=== PATIENT | male | born 1985 | race African-American/Black ===

== ENCOUNTER → 2022-03-15 | Outpatient (CLI) | payer OTHER ==
--- NOTE | 2022-03-15 16:41 | Diagnostic Imaging Report ---
CLINICAL HISTORY: Left hip pain. No known trauma. COMPARISON: None. TECHNIQUE: 5 views of the pelvis and bilateral hips. FINDINGS: There is no acute fracture or dislocation of the pelvis and bilateral hips. A cystic lesion is seen in the head of the left femur resulting in loss of normal joint space in the left hip joint. The right hip joint demonstrates normal alignment without significant degenerative changes. The bilateral SI joints are unremarkable. The pubic symphysis is intact. The surrounding soft tissues are unremarkable. IMPRESSION: 1. Cystic lesion in the head of the left femur which appears to extend to the left hip joint causing loss of joint space. No pathologic fractures identified. Recommend further evaluation with CT and/or MRI of the left hip. 2. No acute fracture or dislocation in the pelvis. Normal appearance of the right hip. Dictated by: Dictated on workstation # [id number]
== END ==
LOC: RAD 15:55
PROVIDERS: ATTEND Chiropractor
DX: M85.48 Solitary bone cyst, other site (principal)
CPT/HCPCS: 73523

== ENCOUNTER → 2022-11-09 | Outpatient (CLI) | payer OTHER ==
--- NOTE | 2022-11-09 11:09 | Diagnostic Imaging Report ---
EXAMINATION: Magnetic resonance imaging of the pelvis and left hip without contrast DATE: November 09, 2022. COMPARISON: Radiographs of the pelvis and hips March 15, 2022. INDICATION: 37-year-old male, left hip pain. TECHNIQUE: Magnetic Resonance Imaging sequences were performed of the pelvis without contrast. TENDONS AND MUSCLES: The gluteus ayanna muscles and their origins and insertions are intact bilaterally. The tendons and muscles of the greater trochanter - gluteus minimus, piriformis and gluteus medius - are intact bilaterally. Both common hamstring attachments on the ischial tuberosities are intact and the extensor muscles of the thigh are intact. The visualized portions of the flexors and adductor muscles of the thigh and their attachments on the pelvis and hips are intact. Both iliopsoas and iliacus muscles are intact. The bilateral iliopsoas tendons are intact. HIPS AND SACROILIAC JOINTS: There is abnormal contour of the articulating surface of the left femoral head consistent with subchondral collapse. There is underlying edema-like signal and areas of cystic change. This most likely relates to sequela of avascular necrosis. There is medu-ig-jsly articulation of the left hip joint. There is degenerative related edema in the left acetabulum. There is a moderate to large left hip joint effusion. There is no identified fluid-filled right hip labral tear or paralabral cyst. There is no finding of avascular necrosis of the right femoral head. There is no right hip joint effusion. The sacroiliac joints are unremarkable. LUMBAR SPINE: The visible portions of the lumbar spine are unremarkable on limited assessment. BONE: There is subchondral collapse and irregularity of the articulating surface of the left femoral head as described above. There is no evidence of avascular necrosis of the right femoral head. There is no identified acute fracture. The additional bone marrow signal is unremarkable. BURSAE AND SOFT TISSUES: The bursae and soft tissues surrounding the pelvis and hips are within normal limits. IMPRESSION: 1. Significantly altered contour of the articulating surface of the left femoral head compatible with subchondral collapse most likely relating to sequela of avascular necrosis with end-stage arthritis of the left hip and moderate to large left hip joint effusion. 2. No evidence of avascular necrosis of the right femoral head. 3. Intact muscles and tendons. Dictated by: Dictated on workstation # [id number]
== END ==
LOC: RAD 07:32
PROVIDERS: ATTEND Internal Medicine
DX: M16.12 Unilateral primary osteoarthritis, left hip (principal)
CPT/HCPCS: 73721

== ENCOUNTER 2023-03-15 14:44 | Observation (INO) | payer OTHER ==
[~2023-03-15] VITALS: Ht 182.9 cm; Wt 99.6 kg
[2023-03-15] MEDS ORDERED: ONDANSETRON 4 MG (ZOFRAN) ORAL DISSOLVE TAB PO PRN (15:45)
[2023-03-15] MEDS ORDERED: CALCIUM CARBONATE 500 MG (TUMS) TAB.CHEW PO PRN (15:45)
[2023-03-15] MEDS ORDERED: diphenhydrAMINE 50 MG/ML INJ (BENADRYL) IVP PRN (15:45)
[2023-03-15] MEDS ORDERED: MELATONIN 3 MG TABLET PO PRN (15:45)
[2023-03-15] MEDS ORDERED: LACTULOSE SYRUP 10GM/15ML (ENULOSE) 30ML UDC PO PRN (15:45)
[2023-03-15] MEDS ORDERED: ANTACID SUSP 30 ML UDC (MYLANTA) PO PRN (15:45)
[2023-03-15] MEDS ORDERED: diphenhydrAMINE 25 MG TAB (BENADRYL) PO PRN (15:45)
[2023-03-15] MEDS ORDERED: ACETAMINOPHEN 325 MG TABLET PO PRN (15:45)
[2023-03-15] MEDS ORDERED: ONDANSETRON 4 MG/2 ML (SDV) Z0FRAN IV PRN (15:45)
[2023-03-15] MEDS ORDERED: BISACODYL 10 MG SUPP (DULCOLAX) PR PRN (15:45)
[2023-03-15] MEDS ORDERED: MILK OF MAGNESIA 400 MG/5 ML 30 ML UDC PO PRN (15:45)
[2023-03-15] MEDS ORDERED: polyethylene glycoL POWDER 17 GM (MIRALAX) PACK PO PRN (15:45)
[2023-03-15] MEDS ORDERED: PANTOPRAZOLE 40 MG (PROTONIX) TAB PO NR (16:15)
[2023-03-15] MEDS: LACTATED RINGERS 1,000 ML IV SCH (16:19)
[2023-03-15 16:26] VITALS: BP 134/86
[2023-03-15] MEDS ORDERED: NS IV 500 ML 500 ML IV PRN (17:30)
[2023-03-15] MEDS ORDERED: LACTATED RINGERS 1,000 ML IV SCH (17:30)
[2023-03-15] MEDS: ALLOPURINOL 100 MG (ZYLOPRIM) TAB PO SCH (17:54)
[2023-03-15 17:56] LABS: HEMATOCRIT 34 % (40-54); HEMOGLOBIN 11.3 g/dL (13.3-17.7); MEAN CORPUSCULAR HEMOGLOBIN 31 pg (25-34); MEAN CORPUSCULAR HGB CONC 33 g/dL (32-36); MEAN CORPUSCULAR VOLUME 95 fL (80-99); PLATELET COUNT 473 10^3/uL (130-400); WHITE BLOOD COUNT 13.1 10^3/uL (4.3-11.0)
[2023-03-15] MEDS: NAPROXEN 250 MG (NAPROSYN) TABLET PO SCH (17:58)
[2023-03-15 18:07] LABS: POTASSIUM 3.8 MMOL/L (3.6-5.0)
[2023-03-15 18:12] LABS: CREATININE SERUM 1.04 MG/DL (0.60-1.30)
--- NOTE | 2023-03-15 19:08 | History & Physical-Hospitalist ---
History of Present Illness HPI/Chief Complaint Jaxon Camacho is a 37 year old male with PMH gout, avascular necrosis of the hip, who presented with joint pain. He was directly admitted from Dr. Aragon's office. He has had many gout flares in the past. He had taken steroids long-term due to recurrent polyarticular gout. He subsequently developed avascular necrosis of his hip. He was scheduled to have surgery a few weeks ago, but prior to the surgery he developed a gout flare. He was given a one time dose of colchicine and a short course of indomethacin. He was also started on allopurinol. He improved but then had another flare. He was given another short course, 4 days, of indomethacin. His allopurinol was increased. He again worsened and now has polyarticular joint complaints. He has pain in both ankles. He also has pain and swelling in both knees. He also reports bilateral wrist and elbow pain. He does not have any redness. He denies ever having had an arthrocentesis to confirm his gout. His uric acid was 6.8 at his most recent lab check. Source: patient, RN/MD Exam Limitations: no limitations Date Seen 03/15/23 Time Seen by a Provider: 17:15 Attending Physician Junior Aragon MD PCP Admitting Physician: Janneth Aguirre MD Attending Physician: Janneth Aguirre MD Referring Physician Date of Admission March 15, 2023 at 15:40 Home Medications & Allergies Home Medications Reviewed patient Home Medication Reconciliation performed by pharmacy medication reconciliations floor care technician and/or nursing. Patients Allergies have been reviewed. Allergies Allergies Coded Allergies No Known Drug Allergies (Unverified03/15/23) Past Kovelhw-Fzhdcg-Ronsbl Hx Patient Social History Tobacco Use?: Yes Smokeless Tobacco Frequency: Current Everyday User Use of E-Cig and/or Vaping dev: No Substance use?: No Alcohol Use?: No Pt feels they are or have been: No Immunizations Up To Date Tetanus Booster (TDap): More Than 5 Years Current Status Advance Directives: No Communicates: Verbally Primary Language: Occitan Preferred Spoken Language: Occitan Is interpretation needed?: No Past Medical History Gout Family Medical History Other Conditions/Hx (gout) Review of Systems Constitutional: no symptoms reported Respiratory: no symptoms reported Cardiovascular: no symptoms reported Gastrointestinal: no symptoms reported Physical Exam Physical Exam Vital Signs Vital Signs - First Documented 03/15/23 16:26 Temp 37.7 Pulse 107 Resp 20 B/P (MAP) 134/86 (102) Pulse Ox 98 O2 Delivery Room Air Capillary Refill : Height, Weight, BMI Height: '" Weight: lbs. oz. kg; 29.77 BMI Method: General Appearance: No Apparent Distress, WD/WN HEENT: PERRL/EOMI, Pharynx Normal Neck: Normal Inspection, Supple Respiratory: Lungs Clear, Normal Breath Sounds, No Respiratory Distress Cardiovascular: Regular Rate, Rhythm, No Murmur Gastrointestinal: Normal Bowel Sounds, Non Tender, Soft Extremity: Swelling, Other (bilateral ankle tenderness with passive range of motion, bilateral knee tenderness with passive range of motion with left knee swelling > right, bilateral wrist tenderness, left elbow swollen but nontender, no erythema) Neurologic/Psychiatric: Alert, No Motor/Sensory Deficits Skin: Warm/Dry; No Erythema Results Results/Procedures Labs Laboratory Tests 03/15/23 17:45 Patient resulted labs reviewed. Assessment/Plan Admission Diagnosis Acute polyarticular gout flare Admission Status: Observation Assessment and Plan Acute polyarticular gout flare Olecranon bursitis of left elbow Steroid-induced avascular necrosis of hip Tobacco abuse Consult Ortho for possible arthrocentesis Begin Naproxen Continue Allopurinol Pain regimen PPI for GI prophylaxis while on NSAIDs Nicotine patch Diagnosis/Problems Diagnosis/Problems (1) Polyarticular acute idiopathic gout Status: Acute (2) Olecranon bursitis of left elbow Status: Acute (3) Avascular necrosis of hip Status: Chronic Qualifiers: Laterality: unspecified laterality Qualified Codes: M87.059 - Idiopathic aseptic necrosis of unspecified femur (4) 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
[2023-03-15] MEDS: NICOTINE 14 MG (NICODERM) PATCH TD SCH (19:13)
[2023-03-15 19:54] VITALS: BP 128/62
[2023-03-15] MEDS: SENNOSIDES 8.6 MG (SENOKOT) TAB PO SCH (20:04)
[2023-03-15] MEDS: DOCUSATE SODIUM 100 MG (COLACE) CAP PO SCH (20:04)
[2023-03-15 23:35] VITALS: BP 126/70
[2023-03-16] MEDS: LACTATED RINGERS 1,000 ML IV SCH ×3 (02:27→13:35)
[2023-03-16 03:54] VITALS: BP 131/72
[2023-03-16 05:25] LABS: BASOPHILS # (AUTO) 0.1 10^3/uL (0.0-0.1); BASOPHILS % (AUTO) 1 % (0-10); EOSINOPHILS # (AUTO) 0.3 10^3/uL (0.0-0.3); EOSINOPHILS % (AUTO) 2 % (0-10); HEMATOCRIT 31 % (40-54); HEMOGLOBIN 10.2 g/dL (13.3-17.7); LYMPHOCYTES # (AUTO) 1.7 10^3/uL (1.0-4.0); LYMPHOCYTES % (AUTO) 13 % (12-44); MEAN CORPUSCULAR HEMOGLOBIN 31 pg (25-34); MEAN CORPUSCULAR HGB CONC 33 g/dL (32-36); MEAN CORPUSCULAR VOLUME 95 fL (80-99); MEAN PLATELET VOLUME 9.8 fL (9.0-12.2); MONOCYTES # (AUTO) 1.5 10^3/uL (0.0-1.0); MONOCYTES % (AUTO) 11 % (0-12); NEUTROPHILS # (AUTO) 9.3 10^3/uL (1.8-7.8); NEUTROPHILS % (AUTO) 72 % (42-75); PLATELET COUNT 413 10^3/uL (130-400); WHITE BLOOD COUNT 12.9 10^3/uL (4.3-11.0)
[2023-03-16 05:36] LABS: CALCIUM 10.1 MG/DL (8.5-10.1)
[2023-03-16] MEDS: POTASSIUM CL 10MEQ/50ML IVPB 50 ML IV SCH (05:36)
[2023-03-16] MEDS: KCL 20 MEQ TAB (K-DUR) PO SCH (05:37)
[2023-03-16 05:40] LABS: CREATININE SERUM 0.87 MG/DL (0.60-1.30)
[2023-03-16] MEDS: MAGNESIUM 1 GM/100 ML IVPB 100 ML IV SCH (05:47)
[2023-03-16 07:32] VITALS: BP 124/67
--- NOTE | 2023-03-16 08:28 | Progress Note - Hospitalist ---
[facility] 03/16/23 0827: Subjective HPI/CC On Admission Jaxon Camacho is a 37 year old male with PMH gout, avascular necrosis of the hip, who presented with joint pain. He was directly admitted from Dr. Aragon's office. He has had many gout flares in the past. He had taken steroids long-term due to recurrent polyarticular gout. He subsequently developed avascular necrosis of his hip. He was scheduled to have surgery a few weeks ago, but prior to the surgery he developed a gout flare. He was given a one time dose of colchicine and a short course of indomethacin. He was also started on allopurinol. He improved but then had another flare. He was given another short course, 4 days, of indomethacin. His allopurinol was increased. He again worse yoan and now has polyarticular joint complaints. He has pain in both ankles. He also has pain and swelling in both knees. He also reports bilateral wrist and elbow pain. He does not have any redness. He denies ever having had an arthrocentesis to confirm his gout. His uric acid was 6.8 at his most recent lab check. Subjective/Events-last exam Patient feels his pain is about the same as yesterday. He also reports pain in b/l MTP joints. He took one dose of oxycodone last night due to pain after getting up and walking to the bathroom. Review of Systems General: No Chills, No Night Sweats Gastrointestinal: No: Nausea, Vomiting Objective Exam Vital Signs Vital Signs Date Time Temp Pulse Resp B/P (MAP) Pulse Ox O2 Delivery O2 Flow Rate FiO2 03/16/23 11:29 36.2 85 18 122/65 (84) 95 Room Air Capillary Refill : General Appearance: No Apparent Distress, WD/WN Respiratory: Lungs Clear, Normal Breath Sounds, No Accessory Muscle Use, No Respiratory Distress Cardiovascular: Regular Rate, Rhythm, Normal Peripheral Pulses Gastrointestinal: Normal Bowel Sounds, Non Tender, Soft Extremity: Swelling, Other (bilateral ankle tenderness with passive range of motion, b/l MTP tenderness with passive ROM, bilateral knee tenderness with left knee swelling > right, bilateral wrist tenderness, left elbow without pain on range of motion, no erythema; right elbow erythematous and swollen as well as TTP) Neurologic/Psychiatric: Alert, No Motor/Sensory Deficits Skin: Normal Color, Warm/Dry Results/Procedures Lab Laboratory Tests 03/15/23 17:45 03/16/23 05:18 Patient resulted labs reviewed. Assessment/Plan Assessment and Plan Assess & Plan/Chief Complaint Acute polyarticular gout flare Olecranon bursitis of left elbow Steroid-induced avascular necrosis of hip Tobacco abuse Consult Ortho for arthrocentesis Continue Naproxen Continue Allopurinol Start colchicine Pain regimen PPI for GI prophylaxis while on NSAIDs Nicotine patch Likely d/c tomorrow if symptoms improving JANNETH AGUIRRE MD 03/16/23 1503: Subjective HPI/CC On Admission Date Seen by Provider: March 16, 2023 Time Seen by Provider: 11:20 Assessment/Plan Assessment and Plan Assess & Plan/Chief Complaint Arthrocentesis confirmed gout. Given colchicine. Continue naproxen and allopurinol. 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 I reviewed and verified all information documented by the medical student and made modifications to such information, when appropriate. I personally performed the physical exam and medical decision making. IVAN RYAN March 16, 2023 08:27 JANNETH AGUIRRE MD March 16, 2023 15:03
[2023-03-16] MEDS: NICOTINE 14 MG (NICODERM) PATCH TD SCH (09:25)
[2023-03-16] MEDS: NAPROXEN 250 MG (NAPROSYN) TABLET PO SCH ×2 (09:26→18:12)
[2023-03-16] MEDS: ALLOPURINOL 100 MG (ZYLOPRIM) TAB PO SCH ×2 (09:26→18:12)
[2023-03-16] MEDS: DOCUSATE SODIUM 100 MG (COLACE) CAP PO SCH ×2 (09:26→19:43)
[2023-03-16] MEDS: PANTOPRAZOLE 40 MG (PROTONIX) TAB PO SCH (09:27)
[2023-03-16] MEDS: SENNOSIDES 8.6 MG (SENOKOT) TAB PO SCH ×2 (09:27→19:43)
[2023-03-16] MEDS ORDERED: NAPR220T66 PO (10:25)
[2023-03-16] MEDS ORDERED: VITA-246 PO (10:25)
[2023-03-16] MEDS ORDERED: TURM500C4 PO (10:25)
[2023-03-16] MEDS ORDERED: ALLO100T PO (10:25)
[2023-03-16 11:29] VITALS: BP 122/65
--- NOTE | 2023-03-16 12:10 | Consultation - Ortho ---
Consult - Ortho Subjective Date of Exam 03/16/23 Chief Complaint Multiple joint pain HPI/Events since last exam recent gout treatments, had flare up, asked to obtain synovial fluid for lab analysis Medical, Surgical History see admit Social History see admit Family History see admit Review of Systems - Allergies: Coded Allergies: No Known Drug Allergies (Unverified , 03/15/23) Home Meds Reported Medications Naproxen Sodium (Aleve) 220 Mg Tablet, 220-440 MG PO Q12H PRN for PAIN-MILD (1- 4), TAB 03/16/23 Turmeric/Turmeric Root Extract (Turmeric 500 mg Capsule) 450 Mg-50 Mg Capsule, 1 EACH PO DAILY, CAP 03/16/23 Vitamin D3/Vitamin K2 (Mk4) (K2 Plus D3 Tablet) 1,000 Unit-100 Mcg Tablet, 1 EACH PO DAILY, TAB 03/16/23 Allopurinol (Allopurinol) 100 Mg Tablet, 100 MG PO BID, TAB 03/16/23 Objective Exam Right knee prepped with alcohol, 18 gauge needle inserted into suprapatellar pouch, 12 cc of cloudy synovial fluid removed, site dressed with band-aid Vital Signs Vital Signs Date Time Temp Pulse Resp B/P (MAP) Pulse Ox O2 Delivery O2 Flow Rate FiO2 03/16/23 11:29 36.2 85 18 122/65 (84) 95 Room Air 03/16/23 07:32 36.1 89 18 124/67 (86) 96 Room Air 03/16/23 03:54 37.0 99 18 131/72 (91) 96 Room Air 03/15/23 23:35 36.4 97 18 126/70 (88) 95 Room Air 03/15/23 20:05 Room Air 03/15/23 19:54 36.9 100 18 128/62 (84) 95 Room Air 03/15/23 17:49 Room Air 03/15/23 16:26 37.7 107 20 134/86 (102) 98 Room Air I & O 03/16/23 07:00 Intake Total 2300 ml Output Total 925 ml Balance 1375 ml Lab Results Laboratory Tests 03/15/23 17:45: White Blood Count 13.1H, Red Blood Count 3.61L, Hemoglobin 11.3L, Hematocrit 34L , Mean Corpuscular Volume 95, Mean Corpuscular Hemoglobin 31, Mean Corpuscular Hemoglobin Concent 33, Red Cell Distribution Width 14.1, Platelet Count 473H, Mean Platelet Volume 10.0, Sodium Level 137, Potassium Level 3.8, Chloride Level 99, Carbon Dioxide Level 23, Anion Gap 15H, Blood Urea Nitrogen 10, Creatinine 1.04, Estimat Glomerular Filtration Rate 94, BUN/Creatinine Ratio 10, Glucose Level 93, Calcium Level 11.0H 03/16/23 05:18: White Blood Count 12.9H, Red Blood Count 3.25L, Hemoglobin 10.2L, Hematocrit 31L , Mean Corpuscular Volume 95, Mean Corpuscular Hemoglobin 31, Mean Corpuscular Hemoglobin Concent 33, Red Cell Distribution Width 14.2, Platelet Count 413H, Mean Platelet Volume 9.8, Sodium Level 137, Potassium Level 4.0, Chloride Level 102, Carbon Dioxide Level 23, Anion Gap 12, Blood Urea Nitrogen 9, Creatinine 0.87, Estimat Glomerular Filtration Rate 113, BUN/Creatinine Ratio 10, Glucose Level 95, Calcium Level 10.1, Immature Granulocyte % (Auto) 1, Neutrophils (%) (Auto) 72, Lymphocytes (%) (Auto) 13, Monocytes (%) (Auto) 11, Eosinophils (%) (Auto) 2, Basophils (%) (Auto) 1, Neutrophils # (Auto) 9.3H, Lymphocytes # (Auto) 1.7, Monocytes # (Auto) 1.5H, Eosinophils # (Auto) 0.3, Basophils # (Auto) 0.1, Immature Granulocyte # (Auto) 0.1, Magnesium Level 2.0 Assessment and Plan Assessment Right knee effusion, possible gout Problem List Right knee effusion, possible gout Plan Send fluid for crystal analysis Final Diagonsis Right knee effusion, possible gout Level of the visit: Level 3 KARMA FRANZ MD March 16, 2023 12:10
[2023-03-16] MEDS ORDERED: COLCHICINE 0.6 MG (COLCRYS) TABLET PO NR ×2 (13:00→14:30)
[2023-03-16 15:43] VITALS: BP 132/79
[2023-03-16 20:10] VITALS: BP 130/80
[2023-03-16 23:41] VITALS: BP 129/77
[2023-03-17 03:43] VITALS: BP 126/81
[2023-03-17 05:38] LABS: BASOPHILS # (AUTO) 0.1 10^3/uL (0.0-0.1); BASOPHILS % (AUTO) 1 % (0-10); EOSINOPHILS # (AUTO) 0.4 10^3/uL (0.0-0.3); EOSINOPHILS % (AUTO) 4 % (0-10); HEMATOCRIT 33 % (40-54); HEMOGLOBIN 10.7 g/dL (13.3-17.7); LYMPHOCYTES # (AUTO) 1.9 10^3/uL (1.0-4.0); LYMPHOCYTES % (AUTO) 19 % (12-44); MEAN CORPUSCULAR HEMOGLOBIN 31 pg (25-34); MEAN CORPUSCULAR HGB CONC 32 g/dL (32-36); MEAN CORPUSCULAR VOLUME 95 fL (80-99); MEAN PLATELET VOLUME 10.2 fL (9.0-12.2); MONOCYTES # (AUTO) 1.1 10^3/uL (0.0-1.0); MONOCYTES % (AUTO) 11 % (0-12); NEUTROPHILS # (AUTO) 6.5 10^3/uL (1.8-7.8); NEUTROPHILS % (AUTO) 65 % (42-75); PLATELET COUNT 428 10^3/uL (130-400); WHITE BLOOD COUNT 9.9 10^3/uL (4.3-11.0)
[2023-03-17 05:54] LABS: CALCIUM 10.5 MG/DL (8.5-10.1)
[2023-03-17] MEDS: KCL 20 MEQ TAB (K-DUR) PO SCH (05:56)
[2023-03-17] MEDS: POTASSIUM CL 10MEQ/50ML IVPB 50 ML IV SCH (05:56)
[2023-03-17 05:59] LABS: CREATININE SERUM 0.84 MG/DL (0.60-1.30)
[2023-03-17 06:01] LABS: MAGNESIUM 2.1 MG/DL (1.6-2.4)
[2023-03-17] MEDS: MAGNESIUM 1 GM/100 ML IVPB 100 ML IV SCH (06:02)
[2023-03-17 07:15] VITALS: BP 131/84
[2023-03-17] MEDS ORDERED: ALLOPURINOL 100 MG (ZYLOPRIM) TAB PO SCH (08:00)
[2023-03-17] MEDS ORDERED: NICOTINE PATCH REMOVAL TP SCH (08:59)
[2023-03-17] MEDS: SENNOSIDES 8.6 MG (SENOKOT) TAB PO SCH (09:01)
[2023-03-17] MEDS: DOCUSATE SODIUM 100 MG (COLACE) CAP PO SCH (09:01)
[2023-03-17] MEDS: NICOTINE 14 MG (NICODERM) PATCH TD SCH (09:07)
[2023-03-17] MEDS: LACTATED RINGERS 1,000 ML IV SCH (09:10)
[2023-03-17] MEDS: PANTOPRAZOLE 40 MG (PROTONIX) TAB PO SCH (09:10)
[2023-03-17] MEDS: NAPROXEN 250 MG (NAPROSYN) TABLET PO SCH (09:10)
--- NOTE | 2023-03-17 09:49 | Progress Note - Hospitalist ---
Subjective HPI/CC On Admission Jaxon Camacho is a 37 year old male with PMH gout, avascular necrosis of the hip, who presented with joint pain. He was directly admitted from Dr. Aragon's office. He has had many gout flares in the past. He had taken steroids long-term due to recurrent polyarticular gout. He subsequently developed avascular necrosis of his hip. He was scheduled to have surgery a few weeks ago, but prior to the surgery he developed a gout flare. He was given a one time dose of colchicine and a short course of indomethacin. He was also started on a llopurinol. He improved but then had another flare. He was given another short course, 4 days, of indomethacin. His allopurinol was increased. He again worsened and now has polyarticular joint complaints. He has pain in both ankles. He also has pain and swelling in both knees. He also reports bilateral wrist and elbow pain. He does not have any redness. He denies ever having had an arthrocentesis to confirm his gout. His uric acid was 6.8 at his most recent lab check. Review of Systems General: No Chills, No Night Sweats HEENT: No Head Aches, No Visual Changes Pulmonary: No Dyspnea, No Cough Cardiovascular: No: Chest Pain, Palpitations Gastrointestinal: No: Nausea, Vomiting Musculoskeletal: arm pain, leg pain Neurological: No: Weakness, Numbness Objective Exam Vital Signs Vital Signs Date Time Temp Pulse Resp B/P (MAP) Pulse Ox O2 Delivery O2 Flow Rate FiO2 03/17/23 11:41 36.2 90 18 118/72 (87) 94 Room Air Capillary Refill : General Appearance: No Apparent Distress, WD/WN HEENT: PERRL/EOMI, Moist Mucous Membranes Respiratory: Lungs Clear, Normal Breath Sounds, No Respiratory Distress Cardiovascular: Regular Rate, Rhythm, No Murmur Gastrointestinal: Non Tender, Soft Extremity: No Pedal Edema, Other (right ankle tenderness with passive range of motion, left knee tenderness with left knee swelling > right, right wrist warmth and tenderness, left elbow without pain on range of motion, no erythema; right elbow erythematous, warm and swollen as well as TTP) Neurologic/Psychiatric: Alert, Oriented x3, Normal Mood/Affect Skin: Normal Color, Warm/Dry Results/Procedures Lab Laboratory Tests 03/17/23 05:09 Patient resulted labs reviewed. Assessment/Plan Assessment and Plan Assess & Plan/Chief Complaint Acute polyarticular gout flare Olecranon bursitis of left elbow Steroid-induced avascular necrosis of hip Tobacco abuse Arthrocentesis confirmed gout Continue Naproxen and Allopurinol Given colchicine Pain regimen PPI for GI prophylaxis while on NSAIDs Nicotine patch Likely d/c today as symptoms are improving IVAN RYAN March 17, 2023 09:49
[2023-03-17 11:41] VITALS: BP 118/72
[2023-03-17] MEDS ORDERED: ALLO100T PO (12:12)
[2023-03-17] MEDS ORDERED: PANT40TA52 PO (12:12)
[2023-03-17] MEDS ORDERED: OXC5T PO (12:12)
[2023-03-17] MEDS ORDERED: NAPR-1088 PO (12:12)
--- NOTE | 2023-03-17 12:55 | Discharge Summary ---
[facility] 03/17/23 1255: Diagnosis/Chief Complaint Date of Admission March 15, 2023 at 15:40 Discharge Date: March 17, 2023 Discharge Time: 12:51 Admission Diagnosis Acute polyarticular gout flare Primary Care Pavan Hayward MD Discharge Diagnosis Acute polyarticular gout flare (1) Polyarticular acute idiopathic gout Status: Acute Assessment & Plan: Arthrocentesis confirmed gout Continue Allopurinol for prophylaxis Continue Naproxen and PPI until uric acid normalizes Short term pain management with oxycodone F/u with Dr. 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 Friedman, ortho surgeon, to confirm plan for surgery next (4) Avascular necrosis of hip Status: Chronic (5) Tobacco abuse Status: Chronic Discharge Summary Discharge Physical Exam Allergies: Coded Allergies: No Known Drug Allergies (Unverified , 03/15/23) Vitals & I&Os Vital Signs Date Time Temp Pulse Resp B/P (MAP) Pulse Ox O2 Delivery O2 Flow Rate FiO2 03/17/23 11:41 36.2 90 18 118/72 (87) 94 Room Air General Appearance: No Apparent Distress, WD/WN HEENT: PERRL/EOMI, Moist Mucous Membranes Respiratory: Lungs Clear, Normal Breath Sounds, No Respiratory Distress Cardiovascular: Regular Rate, Rhythm, No Murmur Gastrointestinal: Normal Bowel Sounds, Non Tender, Soft Extremity: No Pedal Edema, Other (right ankle tenderness with passive range of motion, left knee tenderness with left knee swelling > right, right wrist warmth and tenderness, left elbow without pain on range of motion, no erythema; right elbow erythematous, warm and swollen as well as TTP) Skin: Warm/Dry Neurologic/Psychiatric: Alert, Oriented x3, Normal Mood/Affect Hospital Course Was the Problem List Reviewed?: Yes Jaxon Camacho is a 37 year old male with PMH gout, avascular necrosis of the hip, who presented with joint pain. He was directly admitted from Dr. Hayward's office. He has had many gout flares in the past. He had taken steroids long-term due to recurrent polyarticular gout. He subsequently developed avascular necrosis of his hip. He was scheduled to have surgery a few weeks ago, but prior to the surgery he developed a gout flare. He was given a one time dose of colchicine and a short course of indomethacin. He was also started on allopurinol. He improved but then had another flare. He was given another short course, 4 days, of indomethacin. His allopurinol was increased. He again worsened and now has polyarticular joint complaints. He has pain in both ankles. He also has pain and swelling in both knees. He also reports bilateral wrist and elbow pain. His uric acid was 6.8 at his most recent lab check. He was given allopurinol and naproxen, with PPI prophylaxis, as well as colchicine while in hospital. Pain also managed with prn oxycodone. Patient is feeling overall better at this time. Reports still having pain and decreased motion in right ankle, left knee, right elbow and wrist. He had an episode of b/l foot pain with pins and needles sensation when trying to stand last night improved with oxycodone, pain is not currently present. Arthrocentesis of right knee yesterday by Dr. Mccartney with uric acid crystals confirming gout diagnosis. Labs (last 24 hrs) Laboratory Tests 03/17/23 05:09: White Blood Count 9.9, Red Blood Count 3.49L, Hemoglobin 10.7L, Hematocrit 33L, Mean Corpuscular Volume 95, Mean Corpuscular Hemoglobin 31, Mean Corpuscular Hemoglobin Concent 32, Red Cell Distribution Width 14.1, Platelet Count 428H, Mean Platelet Volume 10.2, Immature Granulocyte % (Auto) 1, Neutrophils (%) (Auto) 65, Lymphocytes (%) (Auto) 19, Monocytes (%) (Auto) 11, Eosinophils (%) (Auto) 4, Basophils (%) (Auto) 1, Neutrophils # (Auto) 6.5, Lymphocytes # (Auto) 1.9, Monocytes # (Auto) 1.1H, Eosinophils # (Auto) 0.4H, Basophils # (Auto) 0.1, Immature Granulocyte # (Auto) 0.1, Sodium Level 139, Potassium Level 4.0, Chloride Level 104, Carbon Dioxide Level 21, Anion Gap 14, Blood Urea Nitrogen 9, Creatinine 0.84, Estimat Glomerular Filtration Rate 114, BUN/Creatinine Ratio 11, Glucose Level 97, Calcium Level 10.5H, Magnesium Level 2.1 Patient resulted labs reviewed. Pending Labs Laboratory Tests 03/17/23 05:09: White Blood Count 9.9, Red Blood Count 3.49, Hemoglobin 10.7, Hematocrit 33, Mean Corpuscular Volume 95, Mean Corpuscular Hemoglobin 31, Mean Corpuscular Hemoglobin Concent 32, Red Cell Distribution Width 14.1, Platelet Count 428, Mean Platelet Volume 10.2, Immature Granulocyte % (Auto) 1, Neutrophils (%) (Auto) 65, Lymphocytes (%) (Auto) 19, Monocytes (%) (Auto) 11, Eosinophils (%) (Auto) 4, Basophils (%) (Auto) 1, Neutrophils # (Auto) 6.5, Lymphocytes # (Auto) 1.9, Monocytes # (Auto) 1.1, Eosinophils # (Auto) 0.4, Basophils # (Auto) 0.1, Immature Granulocyte # (Auto) 0.1, Sodium Level 139, Potassium Level 4.0, Chloride Level 104, Carbon Dioxide Level 21, Anion Gap 14, Blood Urea Nitrogen 9, Creatinine 0.84, Estimat Glomerular Filtration Rate 114, BUN/Creatinine Ratio 11, Glucose Level 97, Calcium Level 10.5, Magnesium Level 2.1 Discussion & Recommendations Discharge Planning: >30 minutes discharge planning Patient to f/u with PCP for uric acid and kidney function testing. Continue allopurinol for prophylaxis, Naproxen and PPI until uric acid normalizes. Use oxycodone prn for pain until gout flare resolves. Discharge Home Medications: Active Scripts Active Oxyir Tablet (Oxycodone HCl) 5 Mg Tab 5 Mg PO Q6H PRN 5 Days Pantoprazole Sodium 40 Mg Tablet.dr 40 Mg PO DAILY 30 Days Naproxen 250 Mg Tablet 500 Mg PO BID WITH MEALS 30 Days Allopurinol 100 Mg Tablet 100 Mg PO BID 30 Days Reported Turmeric 500 mg Capsule (Turmeric/Turmeric Root Extract) 450 Mg-50 Mg Capsule 1 Each PO DAILY K2 Plus D3 Tablet (Vitamin D3/Vitamin K2 (Mk4)) 1,000 Unit-100 Mcg Tablet 1 Each PO DAILY Instructions to patient/family Please see electronic discharge instructions given to patient. Copy Copies To 1: PAVAN HAYWARD MD, JARIN M MD 03/17/23 1536: Diagnosis/Chief Complaint Discharge Time: 12:00 Discharge Diagnosis (1) Polyarticular acute idiopathic gout Status: Acute Assessment & Plan: Arthrocentesis confirmed gout Continue Allopurinol for prophylaxis Continue Naproxen and PPI until uric acid normalizes Short term pain management with oxycodone F/u with Dr. 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 Friedman, ortho surgeon, to confirm plan for surgery next (4) Avascular necrosis of hip Status: Chronic (5) Tobacco abuse Status: Chronic Discharge Summary Discharge Physical Exam Allergies: Coded Allergies: No Known Drug Allergies (Unverified , 03/15/23) Hospital Course Admitted with polyarticular gout. Arthrocentesis confirmed uric acid crystals during this hospitalization. Given dose of colchicine. Started on Naproxen. Given Protonix for GI prophylaxis. Continued on Allopurinol. Will benefit from continued anti-inflammatory medication during initial treatment with urate lowering therapy. Discharged home in improved condition. Follow up with Dr. Hayward in about a week. Repeat BMP and uric acid weekly to monitor renal function and response to Allopurinol. Discussion & Recommendations Discharge Planning: >30 minutes discharge planning Copy Copies To 1: PAVAN HAYWARD MD Supervisory-Addendum Brief Verification & Attestation Participated in pt care: history, MDM, physical Personally performed: exam, history, MDM, supervision of care Care discussed with: Medical Student Procedures: n/a Results interpretation: Verified all documentation A medical student performed and documented this service in my presence. I reviewed and verified all information documented by the medical student and made modifications to such information, when appropriate. I personally performed the physical exam and medical decision making. IVAN RYAN March 17, 2023 12:55 JANNETH AGUIRRE MD March 17, 2023 15:36
== END 2023-03-17 13:31 | disposition home or self-care (01) ==
LOC: 4TH 15:40
PROVIDERS: ADMIT Internal Medicine; ATTEND Internal Medicine
DX: M10.09 Idiopathic gout, multiple sites (principal); M70.22 Olecranon bursitis, left elbow; M87.150 Osteonecrosis due to drugs, pelvis; T38.0X5A Adverse effect of glucocorticoids and synthetic analogues, initial encounter; Y92.9 Unspecified place or not applicable; F17.200 Nicotine dependence, unspecified, uncomplicated; Z28.310 Unvaccinated for COVID-19
CPT/HCPCS: 36415; 80048; 83735; 85025; 85027; 89060

== ENCOUNTER 2023-10-01 15:26 | Emergency (ER) | payer OTHER ==
[~2023-10-01] VITALS: Ht 182 cm; Wt 109.0 kg
[~2023-10-01 15:26] MED LIST: ALLO100T PO; NAPR-1088 PO; NAPR220T66 PO; OXC5T PO; PANT40TA52 PO; TURM500C4 PO; VITA-246 PO
[2023-10-01] MEDS ORDERED: fentaNYL INJECTION 100 MCG/2 ML VIAL IVP STA (15:55)
--- NOTE | 2023-10-01 16:02 | ED Fall/Injury ---
General Chief Complaint: Trauma-Non Activation Stated Complaint: INJ LEFT ELBOW AND KNEE Nursing Triage Note: PT STATES HE FELL WHILE SKATING, LANDING ON LT ELBOW AND TWISTING LT KNEE. UNABLE TO PUT WEIGHT ON LT LEG AND THINKS HIS ELBOW IS BROKE, THIS HAPPENED ABOUT 1430 TODAY. DENIES HEAD OR NECK PAIN, NO LOC Source: patient Exam Limitations: no limitations History of Present Illness Date Seen by Provider: Oct 01, 2023 Time Seen by Provider: 15:59 Initial Comments Patient is a 37-year-old male who presents ED with left elbow left knee injury. [place] 230 [place] the skating [place]. Patient slipped and fell landing on his left knee and left elbow. Denies hitting his head or loss of conscious. Patient had immediate pain. Noted swelling of the left elbow and left knee. History of left hip arthroplasty secondary to gout. Patient states he is not able to move his left knee or able to stand and bear weight. [place] a pop of the left knee felt like his knee shifted out and back in. Patient denies taking thing for pain. Was brought to ED by POV. Needed assistance to ambulate. No history of previous fracture of the left elbow or left knee. Notable swelling. Denies of any headache, dizziness, chest pain, shortness of breath, nausea vomit, diarrhea. Allergies and Home Medications Allergies Coded Allergies: No Known Drug Allergies (Unverified , 03/15/23) Patient Home Medication List Home Medication List Reviewed: Yes Allopurinol (Allopurinol) 100 Mg Tablet, 100 MG PO BID Prescribed by: JANNETH AGUIRRE on 03/17/23 1212 Naproxen (Naproxen) 250 Mg Tablet, 500 MG PO BID WITH MEALS Prescribed by: JANNETH AGUIRRE on 03/17/23 1212 Oxycodone Hcl (Oxyir Tablet) 5 Mg Tab, 5 MG PO Q6H PRN for SEVERE PAIN Prescribed by: JANNETH AGUIRRE on 03/17/23 1213 Pantoprazole Sodium (Pantoprazole Sodium) 40 Mg Tablet.dr, 40 MG PO DAILY Prescribed by: JANNETH AGUIRRE on 03/17/23 1212 Turmeric/Turmeric Root Extract (Turmeric 500 mg Capsule) 450 Mg-50 Mg Capsule, 1 EACH PO DAILY, (Reported) Entered as Reported by: RAJNI HONG on 03/16/23 1025 Vitamin D3/Vitamin K2 (Mk4) (K2 Plus D3 Tablet) 1,000 Unit-100 Mcg Tablet, 1 EACH PO DAILY, (Reported) Entered as Reported by: RAJNI HONG on 03/16/23 1025 Review of Systems Review of Systems Constitutional: No chills, No diaphoresis, No fever, No malaise, No weakness Eyes: Denies Drainage, Denies Decreased Acuity Ears, Nose, Mouth, Throat: denies ear pain, denies ear discharge Respiratory: No cough, No dyspnea on exertion Cardiovascular: No chest pain, No edema Gastrointestinal: No abdominal pain, No diarrhea, No nausea, No vomiting Genitourinary: No decreased output, No discharge Musculoskeletal: joint pain, joint swelling, muscle pain, muscle stiffness Skin: No change in color, No change in hair/nails All Other Systems Reviewed Negative Unless Noted: Yes Past [id number]-[id number] Hx Patient Social History Tobacco Use?: No Substance use?: No Alcohol Use?: Yes Immunizations Up To Date First/Initial COVID19 Vaccinat: NO Past Medical History Surgery/Hospitalization HX: 02/24/23 under anesthesia, surgery called off. LT HIP Gout Family Medical History Other Conditions/Hx Physical Exam Vital Signs Vital Signs - First Documented 10/01/23 15:34 Temp 37.2 Pulse 114 Resp 22 B/P (MAP) 143/97 (112) Pulse Ox 100 O2 Delivery Room Air Capillary Refill : Less Than 3 Seconds Height, Weight, BMI Height: '" Weight: lbs. oz. kg; 32.00 BMI Method: General Appearance: WD/WN, no apparent distress HEENT: PERRL/EOMI, normal ENT inspection, TMs normal, pharynx normal Neck: non-tender, full range of motion, supple Cardiovascular: regular rate, rhythm, no edema, no gallop, no JVD Respiratory: chest non-tender, lungs clear, normal breath sounds, no res piratory distress, no accessory muscle use Gastrointestinal: normal bowel sounds, non tender, soft, no organomegaly Extremities: other (Swelling with crepitus left elbow with flexion extension. Neurovascular intact. Notable tenderness around the olecranon, proximal radius. Tenderness to palpate the anterior left knee with crepitus with limited passive range of motion. Neurovascular intact. Notable swelling. ) Neurologic/Psychiatric: supervisor incising II-XII nml as tested, no motor/sensory deficits, alert, normal mood/affect, oriented x 3 Adolfo Coma Score Best Eye Response: (4) Open Spontaneously Best Verbal Response: (5) Oriented Best Motor Response: (6) Obeys Commands Adolfo Total: 15 Procedures/Interventions Splinting and Joint Reduction : Pre-Proc Neuro Vasc Exam: normal Post-Proc Neuro Vasc Exam: normal Progress Left long-arm posterior Ortho-Glass 4 inch splint. Neurovascularly intact pre and post splint. Long left leg posterior splint 4 inch- neurovascular intact pre and post splint. Garrison wrap: Yes Hand-Made Type: orthoglass Splint Application: Long Arm, Long Leg Progress/Results/Core Measures Results/Orders My Orders Orders - LATRICE FLORES Elbow, Left, 3 Views (10/01/23 15:55) Knee, Left, 3 Views (10/01/23 15:55) Fentanyl Injection (Fentanyl Injection (10/01/23 15:55) Hip, Left, 2 Views (10/01/23 ) Chest 1 View, Ap/Pa Only (10/01/23 ) Hydromorphone Injection (Hydromorphone (10/01/23 16:45) Medications Given in ED Vital Signs/I&O 10/01/23 10/01/23 10/01/23 10/01/23 15:34 16:02 17:01 18:03 Temp 37.2 37.2 37.2 37.2 Pulse 114 103 Resp 22 20 B/P (MAP) 143/97 (112) 150/104 Pulse Ox 100 98 O2 Delivery Room Air Room Air Blood Pressure Mean: 112 Departure Communication (PCP) Reviewed previous ER visits, H&P, lab testing. Differential diagnoses left knee fracture, left elbow fracture, contusion, sprain. History of gout. Left total hip replacement 2 months ago at [place]. Patient with a mechanical fall while skating around 2:30 PM landing directly on his left elbow and left knee. Significant swelling noted on exam. Neurovascularly intact left upper and lower extremity. X-ray of the left knee, left elbow and left hip were ordered. Denies hitting his head or loss of consciousness. IV was started and patient was given 50 mcg of fentanyl for pain. X-ray of the left elbow shows acute comminuted fracture of the left proximal radius and ulna. X-ray of the left knee shows acute comminuted displaced fracture of the left distal femur. X-ray left hip did not show any acute fracture. Patient received Dilaudid IV for continuous pain. Do not currently have orthopedic on-call here. Consulted [facility] talk to the orthopedic Dr. Jo who states he would not be able surgically fix patient and recommended transfer elsewhere. Consulted with [facility] Mariana Steele orthopedic recommended transfer to [facility]. Called [facility] and talked to transfer line. They stated Dr. Farmer orthopedic recommended transfer to the ER for them to get their own films. Accepted by Dr. Gunter ER physician. Do not have any ground EMS transportation from [facility]. Contacted [facility] who have no ground EMS transport. Due to weather no air transport except a helicopter out of [facility]. Family and patient was refusing air transportation. Discussed with family my concerns with POV due to pain control and fracture instability. Patient and family understand the risk. There is no evidence of ischemic of the limbs at this time. Patient was placed in a long left leg splint up to the groin, with immobilizer and Left long-arm splint for stability of the left arm. Impression Primary Impression: Femur fracture Disposition: 02 XFER SHT-TRM HOSP Condition: Stable Transfer BH Medically Cleared for Xfer: Yes Transfer Reason: Exceeds level of care Time Spoke to Accepting Phy: 16:38 Transfer Progress Notes Accepted dr. Gunter Transfer Time: 16:38 Transfer Facility: [facility] Method of Transfer: Private Vehicle Departure-Patient Inst. Decision time for Depature: 17:44 Referrals: PAVAN HAYWARD MD (PCP/Family) Primary Care Physician Patient Instructions: Femur Fracture (DC) Add. Discharge Instructions: NPO. Go directly to the ER. Accepting by Dr. Gunter ER physician at [facility] All discharge instructions reviewed with patient and/or family. Voiced understanding. LATRICE FLORES Oct 01, 2023 16:02
--- NOTE | 2023-10-01 16:34 | Diagnostic Imaging Report ---
EXAMINATION: AP and frog-leg view of the left hip obtained TECHNIQUE: AP and frog-leg view of the left hip obtained. HISTORY: FALL, LT HIP PAIN COMPARISON: None available. FINDINGS: Well aligned total left hip arthroplasty. Heterotopic calcifications along the proximal femur. No periprosthetic loosening. No acute fracture. IMPRESSION: Well aligned total left hip arthroplasty. No acute fracture. Dictated by: Dictated on workstation # [id number]
--- NOTE | 2023-10-01 16:35 | Diagnostic Imaging Report ---
EXAMINATION: Left knee radiograph TECHNIQUE: AP, oblique, lateral views of the left knee obtained. HISTORY: left knee injury COMPARISON: None available. FINDINGS: Acute comminuted displaced fracture of the distal left femur. The joint space is maintained. IMPRESSION: Acute comminuted displaced fracture of the left femur distal shaft. Dictated by: Dictated on workstation # [id number]
[2023-10-01] MEDS ORDERED: HYDROmorphone INJECTION 2 MG/ML VIAL IV ONE (16:45)
--- NOTE | 2023-10-01 16:46 | Diagnostic Imaging Report ---
INDICATION: Left elbow injury with pain and swelling. COMPARISON: None. DISCUSSION: Three views of the left elbow were obtained. Comminuted fracture involving the proximal metaphysis of the left ulna. The olecranon, itself, is intact and remains in normal location. Additional comminuted fracture of the radial head is poorly viewed due to positioning. This appears mildly impacted though not definitely dislocated. Diffuse soft tissue swelling. IMPRESSION: Comminuted fractures of the proximal left radius and ulna. Dictated by: Dictated on workstation # [id number]
--- NOTE | 2023-10-01 16:47 | Diagnostic Imaging Report ---
INDICATION: Chest pain after fall. COMPARISON: None. DISCUSSION: Single portable supine view of the chest was obtained. Normal heart size. No consolidation, pleural fluid or pneumothorax. No osseous abnormality. IMPRESSION: Negative chest. Dictated by: Dictated on workstation # [id number]
[2023-10-01 18:03] VITALS: BP 150/104
== END 2023-10-01 18:03 | disposition short-term general hospital (02) ==
LOC: EDUNIT# 15:26 → ER 15:29
DX: S72.492A Other fracture of lower end of left femur, initial encounter for closed fracture (principal); S52.182A Other fracture of upper end of left radius, initial encounter for closed fracture; S52.092A Other fracture of upper end of left ulna, initial encounter for closed fracture; V00.131A Fall from skateboard, initial encounter; X50.1XXA Overexertion from prolonged static or awkward postures, initial encounter; Y92.331 Roller skating rink as the place of occurrence of the external cause; Y93.21 Activity, ice skating
CPT/HCPCS: 25565; 27503; 29105; 29505; 71045; 73080; 73502; 73562